=== PATIENT | female | born 1970 ===

== ENCOUNTER 2019-08-26 13:26 | Outpatient (CLI) | payer MEDICAID ==
[~2019-08-26] VITALS: Ht 160 cm; Wt 58.1 kg
[2019-08-26 13:37] VITALS: BP 93/68
--- NOTE | 2019-08-26 17:45 | Consultation ---
DATE OF CONSULTATION: 08/26/2019 CONSULTING PHYSICIAN: Brannon Austin M.D. CHIEF COMPLAINT: Constipation. HISTORY OF PRESENT ILLNESS: This is a 49-year-old female with constipation for about a year, severe to the point that she ended up in the emergency room getting enema . Tried [id number] medication including MiraLAX, MOM without any significant improvement. She even took the GoLYTELY. According to her, she did not have any good bowel movement with it. Denies any weight loss, but complains of some abdominal pain. PAST MEDICAL HISTORY: 1. Depression. 2. C. difficile colitis. 3. Gallstones. PAST SURGICAL HISTORY: and tonsillectomy. MEDICATIONS: Lexapro and Klonopin. FAMILY HISTORY: No family history of GI malignancies. SOCIAL HISTORY: The patient denies any tobacco, alcohol, or drug abuse. ALLERGIES: To Flagyl. REVIEW OF SYSTEMS: A 10-point review of systems was performed and pertinent positives in HPI. PHYSICAL EXAMINATION: VITAL SIGNS: Temperature 98, blood pressure 93/68, pulse is 97, respirations 20. HEENT: Normocephalic and atraumatic. Sclerae anicteric. NECK: Supple. No evidence of obvious lymphadenopathy. CARDIOVASCULAR: Regular rate and rhythm. Plus S1 and S2. No obvious murmur. LUNGS: Clear to auscultation bilaterally. ABDOMEN: Positive bowel sounds. Soft and nontender. No rebound. No guarding. No peritoneal sign. EXTREMITIES: No cyanosis. No clubbing. No edema. ASSESSMENT AND PLAN: This is a 49-year-old female with severe constipation. The patient's diagnosis will be given the patient going through menopause, maybe some hormonal imbalance. Order thyroid panel to be drawn today . Also, the patient needs a screening colonoscopy given age of 49. The patient was given the prescription for Linzess and lactulose pending colonoscopy to be done. Brannon Austin M.D. DR: GILMA JOB#: [id number] CC:
[2019-08-27] MEDS ORDERED: LEXAPRO10 MG ORAL (08:48)
[2019-08-27] MEDS ORDERED: KLONOPIN1 MG ORAL (08:48)
== END 2019-08-26 15:26 | disposition home or self-care (01) ==
LOC: PAN 13:26
DX: K59.00 Constipation, unspecified (principal); R10.9 Unspecified abdominal pain; Z79.899 Other long term (current) drug therapy